=== PATIENT | female | born 1995 | race Caucasian/White ===

== ENCOUNTER 2022-05-21 23:32 | Emergency (ER) | payer OTHER ==
[2022-05-22] MEDS: diphenhydrAMINE 50 MG/ML SDV IM ONE (00:02)
[2022-05-22] MEDS: methylPREDNISolone Sodium Succinate 125 MG/2 ML SDV IM ONE (00:06)
== END 2022-05-22 00:34 | disposition home or self-care (01) ==
LOC: VM.ED 23:32
DX: T78.3XXA Angioneurotic edema, initial encounter (principal)
CPT/HCPCS: 96372; 99283; J1200; J2930